=== PATIENT | female | born 1985 | race Asian ===

== ENCOUNTER 2020-12-23 20:14 | Inpatient (IN) | payer MEDICAID, SELFPAY ==
[~2020-12-23] VITALS: Ht 160 cm; Wt 81.6 kg
[2020-12-23] MEDS ORDERED: NALBUPHINE HCL 10 MG/ML AMP IVP PRN ×2 (22:15)
[2020-12-23] MEDS ORDERED: TERBUTALINE SULFATE 1 MG/ML VIAL SUBCUT ONE (22:15)
[2020-12-23] MEDS ORDERED: OXYTOCIN/0.9 % SODIUM CHLORIDE 1,000 ML IV SCH (22:15)
[2020-12-23 22:50] VITALS: BP_SYST 116
[2020-12-23] MEDS: LR 1,000 ML IV SCH (22:57)
[2020-12-23] MEDS ORDERED: AMPICILLIN SODIUM 2 GM in NS 100 ML IV ONE (23:30)
[2020-12-23] MEDS ORDERED: AMPICILLIN SODIUM 2 GM VIAL ONE (23:35)
[2020-12-24 00:48] LABS: BASOPHILS % (AUTO) 0.4 % (0.0-2.0); EOSINOPHILS # (AUTO) 0.2 K/uL (0.0-0.4); EOSINOPHILS % (AUTO) 2.2 % (0.0-4.0); HEMATOCRIT 32.2 % (36-48); HEMOGLOBIN 11.2 g/dL (12.0-16.0); LYMPHOCYTES # (AUTO) 1.6 K/uL (1.0-5.5); LYMPHOCYTES % (AUTO) 22.6 % (20.5-51.5); MEAN CORPUSCULAR HEMOGLOBIN 32 pg (27-31); MEAN CORPUSCULAR HGB CONC 35 % (32-36); MEAN CORPUSCULAR VOLUME 92 fL (79.0-98.0); MONOCYTES # (AUTO) 0.6 K/uL (0.0-1.0); MONOCYTES % (AUTO) 8.5 % (1.7-9.3); NEUTROPHILS # (AUTO) 4.8 K/uL (1.8-7.7); NEUTROPHILS % (AUTO) 66.3 % (40.0-70.0); PLATELET COUNT (AUTO) 216 K/uL (130-430); RED BLOOD CELL COUNT(AUTO) 3.49 MIL/uL (4.2-6.2); RED CELL DISTRIBUTION WIDTH 14.2 % (9.0-15.0); WHITE BLOOD COUNT (AUTO) 7.3 K/uL (4.8-10.8)
[2020-12-24] MEDS ORDERED: ROPIVACAINE HCL/PF 0.2% 200 ML ONE (02:23)
[2020-12-24] MEDS ORDERED: AMPICILLIN SODIUM 1 GM VIAL ONE ×3 (02:53→10:59)
[2020-12-24] MEDS: LR 1,000 ML IV SCH ×3 (03:10→22:15)
[2020-12-24] MEDS: AMPICILLIN SODIUM 1 GM in NS 50 ML IV SCH ×3 (03:24→11:02)
[2020-12-24] MEDS ORDERED: DIPHENHYDRAMINE INJ 50 MG/ML VIAL IVP PRN (03:45)
[2020-12-24] MEDS ORDERED: FENT2mCg/mL-ROPIVA0.2%/NS EPID 150 ML EP SCH (03:45)
[2020-12-24] MEDS ORDERED: ONDANSETRON HCL 4 MG/2 ML VIAL IVP PRN ×2 (03:45→13:45)
[2020-12-24] MEDS ORDERED: TERBUTALINE SULFATE 1 MG/ML VIAL ONE (12:06)
[2020-12-24] MEDS ORDERED: LR 1,000 ML IV SCH (13:45)
[2020-12-24] MEDS ORDERED: hydrALAZINE HCL 20 MG/ML VIAL IVP PRN (13:45)
[2020-12-24] MEDS ORDERED: HYDROmorphone 1 MG/ML INJ. CARTRIDGE IVP PRN (13:45)
[2020-12-24] MEDS ORDERED: ePHEDrine sulfate 50 MG/ML VIAL IVP PRN (13:45)
[2020-12-24] MEDS ORDERED: OXYTOCIN 10 UNIT/ML VIAL ONE (13:51)
[2020-12-24] MEDS ORDERED: METHYLERGONOVINE MALEATE 0.2 MG/ML AMP ONE ×3 (14:01→15:22)
[2020-12-24] MEDS: HYDROmorphone 1 MG/ML INJ. CARTRIDGE ONE ×2 (14:08→14:18)
[2020-12-24 14:14] LABS: HEMATOCRIT 27.8 % (36-48); HEMOGLOBIN 9.4 g/dL (12.0-16.0)
[2020-12-24] MEDS ORDERED: METHYLERGONOVINE MALEATE 0.2 MG/ML AMP IM ONE (15:45)
[2020-12-24] MEDS ORDERED: DIPHENHYDRAMINE INJ 50 MG/ML VIAL ONE (15:57)
[2020-12-24] MEDS ORDERED: DIPHENHYDRAMINE INJ 50 MG/ML VIAL IM ONE (16:00)
[2020-12-24] MEDS ORDERED: ONDANSETRON HCL 4 MG/2 ML VIAL ONE (16:30)
[2020-12-24] MEDS ORDERED: HEMABATE 250MCG/ML VIAL AMP IM ONE ×2 (16:49→17:00)
[2020-12-24] MEDS ORDERED: MISOPROSTOL 100 MCG TABLET (CYTOTEC) ONE (16:49)
[2020-12-24 16:54] LABS: BASOPHILS % (AUTO) 0.2 % (0.0-2.0); EOSINOPHILS % (AUTO) 0.1 % (0.0-4.0); HEMATOCRIT 35.9 % (36-48); HEMOGLOBIN 11.8 g/dL (12.0-16.0); LYMPHOCYTES # (AUTO) 1.8 K/uL (1.0-5.5); LYMPHOCYTES % (AUTO) 6.8 % (20.5-51.5); MEAN CORPUSCULAR HEMOGLOBIN 31 pg (27-31); MEAN CORPUSCULAR HGB CONC 33 % (32-36); MEAN CORPUSCULAR VOLUME 93 fL (79.0-98.0); MONOCYTES # (AUTO) 1.7 K/uL (0.0-1.0); MONOCYTES % (AUTO) 6.4 % (1.7-9.3); NEUTROPHILS # (AUTO) 22.5 K/uL (1.8-7.7); NEUTROPHILS % (AUTO) 86.5 % (40.0-70.0); PLATELET COUNT (AUTO) 128 K/uL (130-430); RED BLOOD CELL COUNT(AUTO) 3.85 MIL/uL (4.2-6.2); RED CELL DISTRIBUTION WIDTH 14.9 % (9.0-15.0)
[2020-12-24] MEDS ORDERED: HYDROmorphone 1 MG/ML INJ. CARTRIDGE ONE (16:57)
[2020-12-24] MEDS ORDERED: MISOPROSTOL 100 MCG TABLET (CYTOTEC) PO ONE (17:00)
[2020-12-24] MEDS ORDERED: TRANEXAMIC ACID 1,000 MG/10 ML VIAL IV ONE (17:00)
[2020-12-24 17:12] LABS: ALBUMIN 1.7 g/dL (3.4-4.8); CREATININE 1.56 mg/dL (0.55-1.30); POTASSIUM 5.5 mmol/L (3.5-5.1); TOTAL BILIRUBIN 3.2 mg/dL (0.0-1.0)
[2020-12-24 17:15] LABS: CALCIUM 6.4 mg/dL (8.4-11.0)
--- NOTE | 2020-12-24 17:15 | NUR ---
RT NOTE: 1715 Responded to Rapid Response in PACU. Pt was intubated around 1720 with 7.5 ETT secured at 23cm LL by Dr Barry. OR staff took over after tube was secured.
[2020-12-24] MEDS ORDERED: NOREPINEPHRINE 4 MG/4 ML VIAL IV ONE ×4 (17:30→22:13)
[2020-12-24 18:43] LABS: BASOPHILS # (AUTO) 0.1 K/uL (0.0-0.2); BASOPHILS % (AUTO) 0.2 % (0.0-2.0); EOSINOPHILS # (AUTO) 0.1 K/uL (0.0-0.4); EOSINOPHILS % (AUTO) 0.5 % (0.0-4.0); HEMOGLOBIN 8.1 g/dL (12.0-16.0); LYMPHOCYTES # (AUTO) 3.3 K/uL (1.0-5.5); LYMPHOCYTES % (AUTO) 13.7 % (20.5-51.5); MEAN CORPUSCULAR HEMOGLOBIN 31 pg (27-31); MEAN CORPUSCULAR HGB CONC 31 % (32-36); MEAN CORPUSCULAR VOLUME 99 fL (79.0-98.0); MONOCYTES # (AUTO) 1.4 K/uL (0.0-1.0); MONOCYTES % (AUTO) 5.6 % (1.7-9.3); NEUTROPHILS # (AUTO) 19.3 K/uL (1.8-7.7); PLATELET COUNT (AUTO) 77 K/uL (130-430); RED BLOOD CELL COUNT(AUTO) 2.62 MIL/uL (4.2-6.2); RED CELL DISTRIBUTION WIDTH 15.3 % (9.0-15.0); WHITE BLOOD COUNT (AUTO) 24.2 K/uL (4.8-10.8)
[2020-12-24 18:51] LABS: INR 3.2 (0.8-1.2); PROTHROMBIN TIME 32.1 SECS (9.5-12.5)
[2020-12-24 18:55] LABS: CREATININE 1.76 mg/dL (0.55-1.30)
[2020-12-24] MEDS ORDERED: THROMBIN (BOVINE) 5000 UNITS/ VIAL TP ONE ×2 (18:56→19:03)
[2020-12-24 19:00] VITALS: BP_SYST 121
[2020-12-24 19:04] LABS: POTASSIUM 7.5 mmol/L (3.5-5.1)
[2020-12-24] MEDS ORDERED: NORMAL SALINE 10 ML VIAL IVP ONE (19:08)
[2020-12-24] MEDS ORDERED: ROCURONIUM BROMIDE 10 MG/ML (ZEMURON) IV ONE (19:08)
[2020-12-24] MEDS ORDERED: INSULIN REGULAR, HUMAN 100 UNITS/ML, 10 ML VIAL (humuLIN R) ONE ×2 (19:15→19:56)
[2020-12-24 19:28] LABS: PROTHROMBIN TIME 39.7 SECS (9.5-12.5)
--- NOTE | 2020-12-24 19:45 | NUR ---
Pt arrived to ICU bed 3 following ACLS protocol, accompanied by RNs and MDA. Pt intubated and on ventilator. Pt obtunded not responding to noxious stimuli. NG-tube in place and clamped. Pt has abdominal dressing in place with [address] draining blood. Wesley catheter in place, no urine output noted besides some bloody output to tube. Received SBAR report at bedside.
[2020-12-24] MEDS: PHENYLEPHRINE HCL 30 MG in D5W 247 ML IV PRN ×2 (19:50→23:38)
--- NOTE | 2020-12-24 19:55 | NUR ---
Neosynephrine gtt initiated per protocol d/t pt's SBP being less than 90 and MAP less than 65.
[2020-12-24 20:00] VITALS: BP_SYST 51
[2020-12-24] MEDS: NOREPINEPHRINE BITARTRATE 16 MG in D5W 234 ML IV PRN ×2 (20:09→22:13)
--- NOTE | 2020-12-24 20:15 | NUR ---
Levophed initiated per protocol d/t pt's BP remaining low despite being on Neosynephrine gtt.
--- NOTE | 2020-12-24 20:15 | NUR ---
Dr. Stapleton at the bedside assessing pt and discussing plan of care.
--- NOTE | 2020-12-24 20:15 | NUR ---
BT INITIATION: Consent signed per agreeing to administration of plasma. Blood has been type and crossmatched. Blood sent from blood bank. Information on unit of plasma checked against patient wristband at bedside by two nurses. All information matches. Patient or responsible libertarian informed of potential complications associated with blood transfusion. Vital signs taken within 5 minutes prior to initiation of transfusion. RN will remain with patient for first 15 minutes of transfusion at which time vital signs will be re-assessed.
[2020-12-24] MEDS ORDERED: VASOPRESSIN 20 UNITS/ML VIAL IV ONE (20:23)
--- NOTE | 2020-12-24 20:25 | NUR ---
Vasopressin gtt initiated per protocol and orders from Dr. Stapleton. Pt's BP not reading anymore despite Neosynephrine gtt and Levophed gtt infusing.
--- NOTE | 2020-12-24 20:45 | NUR ---
Dr. Reynoso at the bedside evaluating pt and discussing plan of care.
--- NOTE | 2020-12-24 20:45 | NUR ---
1 unit of plasma transfused, no reactions were noted.
[2020-12-24 21:00] VITALS: BP_SYST 28
--- NOTE | 2020-12-24 21:05 | NUR ---
Dr. Roy at the bedside evaluating pt and discussing plan of carre. Dr. Roy called to discuss pt's condition and plan of care.
--- NOTE | 2020-12-24 21:20 | NUR ---
BT INITIATION: Consent signed per agreeing to administration of platelets. Blood has been type and crossmatched. Platelets sent from blood bank. Information on unit of platelets checked against patient wristband at bedside by two nurses. All information matches. Patient or responsible democrat informed of potential complications associated with blood transfusion. Vital signs taken within 5 minutes prior to initiation of transfusion. RN will remain with patient for first 15 minutes of transfusion at which time vital signs will be re-assessed.
[2020-12-24] MEDS ORDERED: CALCIUM CHLORIDE 1 GM/10 ML DISP.SYRIN (14 mEq Ca++/SYR) ONE (21:27)
[2020-12-24] MEDS ORDERED: CALCIUM CHLORIDE 1 GM/10 ML DISP.SYRIN (14 mEq Ca++/SYR) IVP ONE (21:30)
[2020-12-24] MEDS ORDERED: PHYTONADIONE 10 MG in NS 50 ML IV ONE (21:30)
[2020-12-24] MEDS ORDERED: PHYTONADIONE 10 MG/ML AMP ONE (21:34)
--- NOTE | 2020-12-24 21:45 | NUR ---
Pt continues to be obtunded. Pt continues to be tachycardic and BPs are not reading at times. Titrating vasopressors per protocol to try to maintain a MAP of 65. Pt's abdominal lap sites bleeding and coming through the ABD dressing, reinforcing with more dressings. Providers aware of the bleeding. Lap sites are not fully closed they are packed and dressed. Obtained orders for blood product transfusions, will follow through with those orders.
[2020-12-24 21:49] LABS: BASOPHILS # (AUTO) 0.1 K/uL (0.0-0.2); BASOPHILS % (AUTO) 0.4 % (0.0-2.0); EOSINOPHILS # (AUTO) 0.2 K/uL (0.0-0.4); EOSINOPHILS % (AUTO) 0.8 % (0.0-4.0); HEMATOCRIT 22.3 % (36-48); LYMPHOCYTES # (AUTO) 6.4 K/uL (1.0-5.5); LYMPHOCYTES % (AUTO) 20.3 % (20.5-51.5); MEAN CORPUSCULAR HEMOGLOBIN 31 pg (27-31); MEAN CORPUSCULAR HGB CONC 31 % (32-36); MEAN CORPUSCULAR VOLUME 101 fL (79.0-98.0); MONOCYTES # (AUTO) 2.1 K/uL (0.0-1.0); MONOCYTES % (AUTO) 6.7 % (1.7-9.3); NEUTROPHILS # (AUTO) 22.8 K/uL (1.8-7.7); NEUTROPHILS % (AUTO) 71.8 % (40.0-70.0); PLATELET COUNT (AUTO) 101 K/uL (130-430); RED BLOOD CELL COUNT(AUTO) 2.22 MIL/uL (4.2-6.2); RED CELL DISTRIBUTION WIDTH 15.5 % (9.0-15.0)
[2020-12-24 21:50] LABS: HEMOGLOBIN 6.9 g/dL (12.0-16.0); WHITE BLOOD COUNT (AUTO) 31.7 K/uL (4.8-10.8)
--- NOTE | 2020-12-24 21:50 | NUR ---
1 unit of platelets transfused, no reactions were noted.
[2020-12-24 21:55] LABS: ALBUMIN 1.1 g/dL (3.4-4.8); CREATININE 2.32 mg/dL (0.55-1.30)
[2020-12-24 22:00] VITALS: BP_SYST 141
--- NOTE | 2020-12-24 22:00 | NUR ---
BT INITIATION: Consent signed per agreeing to administration of blood (PRBCs). Blood has been type and crossmatched. Blood sent from blood bank. Information on unit of blood checked against patient wristband at bedside by two nurses. All information matches. Patient or responsible republican informed of potential complications associated with blood transfusion. Informed of possible transfusion reaction symptoms. Vital signs taken within 5 minutes prior to initiation of transfusion. RN will remain with patient for first 15 minutes of transfusion at which time vital signs will be re-assessed.
[2020-12-24 22:01] LABS: POTASSIUM 7.6 mmol/L (3.5-5.1)
[2020-12-24 22:02] LABS: CALCIUM 6.6 mg/dL (8.4-11.0)
[2020-12-24 22:04] VITALS: BP_SYST 71
--- NOTE | 2020-12-24 22:10 | NUR ---
Chest xray at the bedside to confirm ET tube placement.
[2020-12-24 22:28] LABS: INR 3.4 (0.8-1.2); PROTHROMBIN TIME 33.2 SECS (9.5-12.5)
--- NOTE | 2020-12-24 22:30 | NUR ---
1 unit PRBCs transferred, pt tolerated without any reactions.
--- NOTE | 2020-12-24 22:30 | NUR ---
Updated and family on pt's condition and discussed plan of care. All questions addressed.
--- NOTE | 2020-12-24 22:35 | NUR ---
Family at the bedside, all questions addressed and plan of care discussed.
[2020-12-24 23:00] VITALS: BP_SYST 155
--- NOTE | 2020-12-24 23:15 | NUR ---
BT INITIATION: Consent signed per agreeing to administration of blood cryoprecipitate. Blood has been type and crossmatched. Cryoprecipitate sent from blood bank. Information on unit of Cryoprecipitate checked against patient wristband at bedside by two nurses. All information matches. Patient or responsible green party informed of potential complications associated with blood transfusion. Informed of possible transfusion reaction symptoms. Vital signs taken within 5 minutes prior to initiation of transfusion. RN will remain with patient for first 15 minutes of transfusion at which time vital signs will be re-assessed.
[2020-12-24] MEDS ORDERED: PHENYLEPHRINE HCL 10 MG/ML VIAL (NEOSYNEPHRINE) ONE (23:38)
--- NOTE | 2020-12-24 23:45 | NUR ---
1 unit of cryoprecipitate transfused, no reactions were noted.
--- NOTE | 2020-12-24 23:57 | NUR ---
Noted pt's HR not showing on monitor. No pulses palpable, immediately began CPR following ACLS protocol. ROSC was obtained at 0017.
--- NOTE | 2020-12-24 23:57 | NUR ---
rt notes responded to code gallo called to the icu bed #3. patient pulseless. ED DR. Benavides at bedside. CPR was initiated immediately. ROSC was achieved at 0017.
[2020-12-25] VITALS (7 sets, daily range): BP systolic 0–135
--- NOTE | 2020-12-25 00:15 | NUR ---
BT INITIATION: Consent signed per agreeing to administration of platelets. Blood has been type and crossmatched. Platelets sent from blood bank. Information on unit of platelets checked against patient wristband at bedside by two nurses. All information matches. Patient or responsible republican informed of potential complications associated with blood transfusion. Vital signs taken within 5 minutes prior to initiation of transfusion. RN will remain with patient for first 15 minutes of transfusion at which time vital signs will be re-assessed.
[2020-12-25] MEDS ORDERED: NOREPINEPHRINE 4 MG/4 ML VIAL IV ONE ×2 (00:29→04:52)
--- NOTE | 2020-12-25 00:30 | NUR ---
Pt continues to be obtunded. Pt's abdominal lap sites continue to bleed, reinforcing sites. Continuing to infuse blood products as available per blood bank.
[2020-12-25 00:35] LABS: MEAN CORPUSCULAR HEMOGLOBIN 32 pg (27-31); MEAN CORPUSCULAR HGB CONC 32 % (32-36); MEAN CORPUSCULAR VOLUME 100 fL (79.0-98.0); PLATELET COUNT (AUTO) 153 K/uL (130-430); RED CELL DISTRIBUTION WIDTH 15.3 % (9.0-15.0)
[2020-12-25 00:36] LABS: HEMATOCRIT 17.4 % (36-48); HEMOGLOBIN 5.6 g/dL (12.0-16.0); RED BLOOD CELL COUNT(AUTO) 1.73 MIL/uL (4.2-6.2)
--- NOTE | 2020-12-25 00:45 | NUR ---
1 unit of platelets transfused, no reactions were noted.
[2020-12-25 00:49] LABS: CALCIUM 8.6 mg/dL (8.4-11.0); CREATININE 2.19 mg/dL (0.55-1.30); POTASSIUM 5.4 mmol/L (3.5-5.1)
--- NOTE | 2020-12-25 00:50 | NUR ---
BT INITIATION: Blood has been type and crossmatched. Blood (PRBCs) sent from blood bank. Information on unit of blood checked against patient wristband at bedside by two nurses. All information matches. Patient or responsible republican informed of potential complications associated with blood transfusion. RN will remain with patient for first 15 minutes of transfusion at which time vital signs will be re-assessed.
[2020-12-25 00:59] LABS: ALBUMIN 0.6 g/dL (3.4-4.8); TOTAL BILIRUBIN 1.6 mg/dL (0.0-1.0)
[2020-12-25] MEDS: NOREPINEPHRINE BITARTRATE 16 MG in D5W 234 ML IV PRN (01:00)
[2020-12-25] MEDS ORDERED: VASOPRESSIN 40 UNITS in NS 38 ML IV PRN (01:00)
[2020-12-25] MEDS ORDERED: PHENYLEPHRINE HCL 100 MG in NS 240 ML IV PRN (01:00)
--- NOTE | 2020-12-25 01:20 | NUR ---
1 unit PRBCs transferred, pt tolerated without any reactions.
--- NOTE | 2020-12-25 01:40 | NUR ---
1 unit of PRBCs transfused, pt tolerated well without any reactions.
--- NOTE | 2020-12-25 01:45 | NUR ---
BT INITIATION: Consent signed per agreeing to administration of plasma. Blood has been type and crossmatched. Blood sent from blood bank. Information on unit of plasma checked against patient wristband at bedside by two nurses. All information matches. Patient or responsible republican informed of potential complications associated with blood transfusion. Vital signs taken within 5 minutes prior to initiation of transfusion. RN will remain with patient for first 15 minutes of transfusion at which time vital signs will be re-assessed.
[2020-12-25] MEDS ORDERED: PHENYLEPHRINE HCL 10 MG/ML VIAL (NEOSYNEPHRINE) ONE (01:54)
[2020-12-25 02:03] LABS: FIBRINOGEN < 90 mg/dL (200-400); INR 6.6 (0.8-1.2)
--- NOTE | 2020-12-25 02:15 | NUR ---
1 unit of plasma transfused, no reactions were noted.
--- NOTE | 2020-12-25 02:27 | NUR ---
Chest xray at bedside to confirm ET tube placement after code blue.
--- NOTE | 2020-12-25 04:19 | NUR ---
rt notes responded to mario holder called to the icu bed # [address] Benavides at bedsied Addendum: 12/25/20 at 0755 by Benjamin Malave RT rt notes [id number] responded to mario holder called to the icu bed # 3. patient pulseless. ED DR. Benavides at bedside. CPR was initiated immediately. unable to achieve ROSC. pt at 0501 pronounced by ZEINAB Benavides.
[2020-12-25] MEDS ORDERED: EPINEPHrine JECT 0.1 MG/ML SYR ONE ×2 (04:33)
--- NOTE | 2020-12-25 05:03 | NUR ---
Family notified of patient's . Answered all questions.
--- NOTE | 2020-12-25 05:10 | NUR ---
Noted patient to become bradycardic in the 50s and dropping to 40s. checked for pulses, faint pulses noted, then no more pulses were palpable. Immediately began CPR per ACLS protocol at 0419. unable to obtain ROSC, pt at 0501. Dr. Benavides pronounced pt and spoke with family.
--- NOTE | 2020-12-25 05:15 | NUR ---
Called [facility] in regards to pt's expiration, spoke with Leesa, case number assigned is [id number]. All questions were addressed.
--- NOTE | 2020-12-25 05:20 | NUR ---
Called the tile and mottle supervisor, spoke with Wilmer. He asked to have the surgeon Dr. Stapleton give them a call to speak to their doctor to discuss the case in order to receive clearance and case number. Message will be relayed to Dr. Stapleton.
--- NOTE | 2020-12-25 05:33 | NUR ---
MDs NOTIFIED OF PATIENT EXPIRATION DR. ALAS SPOKE WITH BOBBI YEN [phone] SPOKE WITH DELVIS
[2020-12-25 06:12] LABS: BAND % (MANUAL) 6 % (0-6); BASOPHILS % (MANUAL) 0 % (0-2); EOSINOPHILS % (MANUAL) 1 % (0-7); LYMPHOCYTES % (MANUAL) 34 % (20-46); MONOCYTES % (MANUAL) 1 % (0-11)
--- NOTE | 2020-12-25 06:47 | NUR ---
DR. BISHOP GARCIA MADE AWARE THAT [facility] WILL NOT RELEASE THE BODY UNTIL CONFERENCE IS CALLED WITH HIMSELF AND CORONERS DOCTORS. PER MD HE WILL CALL [facility].
--- NOTE | 2020-12-25 10:00 | NUR ---
RN NOTES SPOKE TO [facility] RE: PATIENT STATUS. THEY ARE STILL WAITING FOR DR. ALAS TO TALK TO THE BOAT DETAILER"S MD.
--- NOTE | 2020-12-25 10:30 | NUR ---
Spoke w/ patient's and his parents. They were given information on bereavement support groups and mortuaries and homes. The stated they are looking into sikhism oriented homes in the area. I gave them my contact information and asked them to call if I could be of any further assistance to them.
--- NOTE | 2020-12-25 11:42 | NUR ---
RN NOTES SPOKE TO DR. JURADO'S, PATIENT WILL BE A OPERATIONS RESEARCH [employer]INE[facility]'S CASE. REFERENCE # [id number]
--- NOTE | 2020-12-25 12:00 | NUR ---
RN NOTES CALLED [employer], WAS ADVISED TO SAVE PT LAB SAMPLES, AND COPY CHART DB WILL BE PICKED UP IN A DAY OR TWO.
--- NOTE | 2020-12-25 12:20 | NUR ---
RN NOTES SPOKE TO THE , CONSENT FOR RELEASE OF REMAINS SIGNED BY . MADE AWARE OF MANAGER TEST'S STATUS.
--- NOTE | 2020-12-25 12:25 | NUR ---
RN NOTES PATIENT REMAINS TO [facility]/ [facility].
== END 2020-12-25 05:01 | DRG 540 ==
LOC: SPU 21:56 → SIC 12-24 19:40
PROVIDERS: ADMIT Specialist; ATTEND Specialist
PROC: 10907ZC Drainage of Amniotic Fluid, Therapeutic from Products of Conception, Via Natural or Artificial Opening (ICD-10-PCS; 2020-12-23)
PROC: 3E033VJ Introduction of Other Hormone into Peripheral Vein, Percutaneous Approach (ICD-10-PCS; 2020-12-23)
PROC: 30233K1 Transfusion of Nonautologous Frozen Plasma into Peripheral Vein, Percutaneous Approach (ICD-10-PCS; 2020-12-24)
PROC: 30233N0 Transfusion of Autologous Red Blood Cells into Peripheral Vein, Percutaneous Approach (ICD-10-PCS; 2020-12-24)
PROC: 10D00Z1 Extraction of Products of Conception, Low, Open Approach (ICD-10-PCS; principal; 2020-12-25)
PROC: 0UT90ZZ Resection of Uterus, Open Approach (ICD-10-PCS; 2020-12-25)
DX: O36.63X0 Maternal care for excessive fetal growth, third trimester, not applicable or unspecified (principal); D65 Disseminated intravascular coagulation [defibrination syndrome]; J96.01 Acute respiratory failure with hypoxia; O90.4 Postpartum acute kidney failure; K72.90 Hepatic failure, unspecified without coma; N17.9 Acute kidney failure, unspecified; O99.13 Other diseases of the blood and blood-forming organs and certain disorders involving the immune mechanism complicating the puerperium; O76 Abnormality in fetal heart rate and rhythm complicating labor and delivery; O77.0 Labor and delivery complicated by meconium in amniotic fluid; O99.285 Endocrine, nutritional and metabolic diseases complicating the puerperium; O99.53 Diseases of the respiratory system complicating the puerperium; E87.5 Hyperkalemia; Z3A.40 40 weeks gestation of pregnancy; Z37.0 Single live birth; Z20.822 Contact with and (suspected) exposure to COVID-19; O26.63 Liver and biliary tract disorders in the puerperium; O62.2 Other uterine inertia; O99.43 Diseases of the circulatory system complicating the puerperium
CPT/HCPCS: 36415; 71045; 80048; 80053; 83605; 85007; 85018; 85025; 85027; 85379; 85384; 85610-TC; 85730-TC; 86592; 86886; 86900; 86901; 86920; 88305; 92950; 94002; 94003; 94640; J0171; J0290; J1170; J1200; J1815; J2210; J2370; J2405; J2590; J3105; J3430; J3490; J7060; P9012; P9021; P9034; P9059